=== PATIENT | male | born 1960 | race Caucasian/White ===

== ENCOUNTER 2017-07-30 03:40 | Emergency (ER) | payer BC ==
[2017-07-30] MEDS ORDERED: ONDANSETRON HCL IV 4 MG/2 ML VIAL IVP ONE (03:45)
[2017-07-30] MEDS ORDERED: 0.9 % SODIUM CHLORIDE 1000ML 1,000 ML IV SCH (03:45)
[2017-07-30] MEDS ORDERED: MORPHINE SULFATE 5 MG/ML PFS IVP ONE (03:45)
--- NOTE | 2017-07-30 03:49 | Emergency Department Record ---
History of Present Illness - General Chief Complaint: Abdominal Pain Stated Complaint: ABDOMINAL PAIN Time Seen by Provider: 07/30/17 03:44 Source: Patient Mode of Arrival: Ambulatory Limitations: No limitations - History of Present Illness Initial Comments: 56 yo male presents to ED for evaluation of pain to the LLQ on examination that began 1.5 hours prior to arrival. Patient denies fevers, chills, vomiting, blood in the stool, or change in stools. Patient denies history of diverticulitis. Patient does report a history of hernia repair previously, denies other abdominal surgeries. Patient denies health problems other than elevated cholesterol. MD Complaint: Abdominal pain Onset/Timin -: Hour(s) Location: Q Migration to: No migration Severity: Moderate Quality: Aching Consistency: Constant Improves With: Nothing Worsens With: Nothing Associated Symptoms: Nausea - Related Data Home Medications Medication Instructions Recorded Confirmed Last Taken Atorvastatin Calcium [Lipitor] 10 mg PO DAILY 07/30/17 07/30/17 Unknown Multivitamin [Multi-Vitamin Daily] 1 each PO DAILY 07/30/17 07/30/17 Unknown Ubidecarenone [Co Q-10] 10 mg PO DAILY 07/30/17 07/30/17 Unknown Previous Rx's Medication Instructions Recorded Hydrocodone/Acetaminophen [[place] 1 each PO Q6H PRN #10 tablet 07/30/17 5-325 Tablet] Allergies Allergy/AdvReac Type Severity Reaction Status Date / Time No Known Drug Allergies Allergy Verified 07/30/17 03:45 Travel Screening - Travel/Exposure Within Last 30 Days Have you traveled within the last 30 days?: No - Travel/Exposure Within Last Year Have you traveled outside the [place] in the last year?: No - Additonal Travel Details Have you been exposed to anyone with a communicable illness?: No - Travel Symptoms Symptom Screening: None Review of Systems Constitutional: Denies: Chills, Fever, Malaise, Night sweats Eyes: Denies: Eye discharge, Eye pain ENT: Denies: Congestion, Ear pain, Epistaxis Respiratory: Denies: Cough, Dyspnea Cardiovascular: Denies: Chest pain, Dyspnea on exertion Endocrine: Denies: Fatigue, Heat or cold intolerance Gastrointestinal: Reports: Abdominal pain. Denies: Nausea, Vomiting Genitourinary: Denies: Incontinence, Retention Musculoskeletal: Denies: Arthralgia, Back pain, Gout, Joint swelling Skin: Denies: Bruising, Change in color Neurological: Denies: Abnormal gait, Confusion, Headache, Seizure Psychiatric: Denies: Anxiety Hematological/Lymphatic: Denies: Anemia, Blood Clots Past Medical History - SOCIAL HISTORY Smoking Status: Never smoker Alcohol Use: Occasional Drug Use: None - RESPIRATORY Hx Respiratory Disorders: No - CARDIOVASCULAR Hx Cardio Disorders: No - NEURO Hx Neuro Disorders: No - GI Hx GI Disorders: No - Hx Genitourinary Disorders: No - ENDOCRINE Hx Endocrine Disorders: No - MUSCULOSKELETAL Hx Musculoskeletal Disorders: No - PSYCH Hx Psych Problems: No - HEMATOLOGY/ONCOLOGY Hx Hematology/Oncology Disorders: No Family Medical History Any Significant Family History?: No Physical Exam - General General Appearance: Alert, Oriented x3, Cooperative Limitations: No limitations - Head Head exam: Atraumatic, Normocephalic Head exam detail: negative: Abrasion, Contusion, Watkins's sign, General tenderness, Hematoma, Laceration - Eye Eye exam: Normal appearance. negative: Conjunctival injection, Periorbital swelling, Periorbital tenderness, Scleral icterus - ENT Ear exam: negative: Auricular hematoma, Auricular trauma Nasal Exam: negative: Active bleeding, Discharge, Dried blood, Foreign body Mouth exam: negative: Drooling, Laceration, Muffled voice, Tongue elevation - Neck Neck exam: Normal inspection. negative: Meningismus, Tenderness - Respiratory Respiratory exam: Normal lung sounds bilaterally. negative: Rales, Respiratory distress, Rhonchi, Stridor - Cardiovascular Cardiovascular Exam: Regular rate, Normal rhythm, Normal heart sounds - GI/Abdominal GI/Abdominal exam: Soft, Tenderness, Other (TTP to the LLQ, no rebound or guarding, no peritoenal signs on examination.). negative: Rebound, Rigid - Rectal Rectal exam: Deferred - exam: Deferred - Extremities Extremities exam: Normal inspection. negative: Pedal edema, Tenderness - Back Back exam: Denies: CVA tenderness (R), CVA tenderness (L) - Neurological Neurological exam: Alert, Normal gait, Oriented X3 - Psychiatric Psychiatric exam: Normal affect, Normal mood - Skin Skin exam: Normal color. negative: Abrasion Type of lesion: negative: abrasion Course - Reevaluation(s) Reevaluation #1: 07/30/17 05:10 Labs reviewed and are grossly unremarkable for an acute process. UA pending. CT Abdomen and Pelvis: 3 mm calculus left UVJ junction Moderate left sided hydronephrosis with perinephric stranding. Reevaluation #2: 07/30/17 05:20 UA reviewed and appears negative for infection. Patient reports improvement in his pain symptoms following Toradol and reports that his pain is down to 2/10, appears stable for discharge at this time. Medical Decision Making - Lab Data Result diagrams: 07/30/17 03:50 07/30/17 03:50 Disposition Disposition: Discharge Clinical Impression: Ureteral stone Disposition: Home, Self-Care Condition: (2) Stable Instructions: Ureteral Stones (ED) Additional Instructions: Return to ED if your symptoms worsen or if you have any concerns. [place] as directed. Follow-up with your family doctor in 1-3 days as directed. Prescriptions: Hydrocodone/Acetaminophen [[place] 5-325 Tablet] 1 each PO Q6H PRN #10 tablet PRN Reason: Pain - Moderate (5-7) Forms: Patient Portal Access Time of Disposition: 05:22 Quality - Quality Measures Quality Measures: N/A - Blood Pressure Screening Does Patient Have Any of the Following: No Blood Pressure Classification: Hypertensive Reading Systolic Measurement: 151 Diastolic Measurement: 90 Screening for High Blood Pressure: < First Hypertensive BP, F/U Documented > [ [id number]] First Hypertensive Follow-up Interventions: Referral to alternative/primary care provider.
[2017-07-30 03:56] LABS: BASO % 0.4 % (0-6); EOS % 1.6 % (0-6); GRAN % 69.6 % (47-80); HEMATOCRIT 44.3 % (42.0-52.0); HEMOGLOBIN 14.8 gm/dl (14.0-18.0); LYMPH % 20.6 % (16-45); MEAN CELL VOLUME 89.7 fl (81-97); MEAN CORPUSCULAR HGB CONC 33.4 g/dl (32-36); MONO % 7.8 % (0-9); PLATELET COUNT 241 K/uL (130-400); RED BLOOD COUNT 4.94 M/uL (4.40-5.70); RED CELL DISTRIBUTION WIDTH 14.1 % (11.5-14.5); WHITE BLOOD COUNT W/O DIFF 10.3 K/uL (4.2-12.2)
[2017-07-30] MEDS ORDERED: HYDROMORPHONE HCL 1 MG/ML SYRINGE IVP ONE (04:04)
[2017-07-30 04:14] LABS: BLOOD UREA NITROGEN 21 mg/dL (6-20); CREATININE 1.3 mg/dL (0.7-1.2); EST GLOMERULAR FILTRATION RATE > 60 mL/min
[2017-07-30 04:15] LABS: TOTAL PROTEIN 7.6 g/dL (6.6-8.7)
[2017-07-30 04:17] LABS: GLUCOSE,RANDOM 157 mg/dL (74-109)
[2017-07-30 04:19] LABS: ALB/GLOB RATIO 1.6 (1.1-1.8); ALBUMIN 4.7 g/dL (4.0-5.0); ALT/SGPT 64 U/L (<41); AST/SGOT 37 U/L (10.0-50.0)
[2017-07-30 04:20] LABS: ALKALINE PHOSPHATASE 112 U/L (40-129); LIPASE 18 U/L (13-60)
[2017-07-30] MEDS ORDERED: KETOROLAC 30 MG/ML VIAL IVP ONE (05:03)
[2017-07-30 05:12] LABS: URINE APPEARANCE CLEAR; URINE BILIRUBIN NEGATIVE (NEGATIVE); URINE BLOOD NEGATIVE (NEGATIVE); URINE COLOR YELLOW; URINE GLUCOSE (UA) NEGATIVE (NEGATIVE); URINE KETONE TRACE (NEGATIVE); URINE LEUKOCYTE ESTERASE NEGATIVE (NEGATIVE); URINE NITRITE NEGATIVE (NEGATIVE); URINE PROTEIN NEGATIVE (NEGATIVE); URINE UROBILINOGEN 0.2 E.U./dL (0.20 - 1.00)
--- NOTE | 2017-07-31 19:38 | CT SCAN REPORT ---
EXAM: CT SCAN ABDOMEN/PELVIS W CONTRAST HISTORY: LEFT LOWER QUADRANT PAIN AND BACK PAIN, NAUSEA FOR ONE DAY. UMBILICAL HERNIA REPAIR WITH MESH 13 YEARS AGO. TECHNIQUE: Axial CT scan of the abdomen and pelvis obtained following the intravenous administration of 100 mL of Omnipaque-300 as the IV contrast. No oral contrast utilized at the referring physician's request. Preliminary report provided by [facility]. COMPARISON: None. FINDINGS: No definite calcified gallstone seen. There is a suggestion of some tiny noncalcified gallstones, however. This could be further assessed with a gallbladder ultrasound, if clinically desired. No additional findings to suggest acute cholecystitis currently. There are some tiny intrarenal calcifications in the left kidney consistent with currently nonobstructing intrarenal calculi. However, there is mild hydronephrosis and hydroureter on the left with the dilated ureter followed down to the bladder, where it becomes contiguous with a tiny calcification along the posterior aspect of the bladder wall measuring only about 2.8 mm in size. Based on its location, this could either lie within the distal most aspect of the left UVJ itself or have passed free into the bladder lumen and now rests along the posterior wall of the bladder. Clinical correlation therefore as to whether there is still persistent symptoms suggested. I suspect this is still in the distal left UVJ. There is an approximately 2.2 cm upper pole left renal cyst with a CT density of 9 consistent with a cyst. Tiny low-attenuation focus centrally in the liver is too small to accurately characterize but probably a tiny cyst or hemangioma. No definite splenic, adrenal, or pancreatic mass identified. Appendix visualized and appears of normal caliber with no appendicitis evident. Small focal soft tissue prominence along the anterior abdominal wall in the periumbilical region is nonspecific but may be related to the history of prior umbilical hernia repair surgery with mesh 13 years ago. No free intraperitoneal air evident. 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 Prominent spurring in the lower thoracic spine. IMPRESSION: 1. APPROXIMATELY 2.8 MM CALCULUS ALONG THE POSTERIOR ASPECT OF THE LEFT SIDE OF THE BLADDER, PROBABLY IN THE DISTAL LEFT UVJ WITH SOME ASSOCIATED HYDRONEPHROSIS AND HYDROURETER ON THE LEFT. 2. SOME ADDITIONAL TINY NONOBSTRUCTING CALCULI ALSO SEEN IN THE LEFT KIDNEY. 3. APPROXIMATELY 2.2 CM UPPER POLE LEFT RENAL CYST. 4. DEGENERATIVE CHANGES AT THE LUMBOSACRAL INTERSPACE AND PROMINENT SPURRING IN THE LOWER THORACIC SPINE. JOB NUMBER: [id number] MTDD
== END 2017-07-30 05:33 | disposition home or self-care (01) ==
LOC: ER 03:40
DX: N13.2 Hydronephrosis with renal and ureteral calculous obstruction (principal); R10.32 Left lower quadrant pain; R11.0 Nausea
CPT/HCPCS: 99284 ×2; 96374; 96375; 83690; 85025; 80053; 81003; 74177; Q9967; J1885; J2405; J2270; J1170; J7030